=== PATIENT | male | born 1960 | race Caucasian/White ===

== ENCOUNTER 2021-02-24 20:18 | Observation (INO) ==
[2021-02-24] MEDS ORDERED: Naloxone 0.4 MG/ML INJ IVP PRN (23:37)
[2021-02-24] MEDS ORDERED: Ondansetron 4 MG/2 ML VIAL IVP PRN (23:37)
[2021-02-24] MEDS ORDERED: Melatonin 3 MG TABLET PO PRN (23:37)
[2021-02-24] MEDS ORDERED: *HR* LORazepam 2 MG/ML VIAL IVP PRN ×2 (23:46)
[2021-02-25] MEDS: Pantoprazole 40 MG in 0.9 % Sodium Chloride Mini Bag 100 ML IVC SCH ×4 (01:10→16:23)
[2021-02-25] MEDS: *HR* LORazepam 2 MG/ML VIAL IVP PRN ×2 (01:13→13:16)
[2021-02-25 01:17] LABS: Basophils % 0.6 %; Eosinophils # 0.2 K/mcL (0.0-0.6); Hematocrit 25.8 % (37.5-50.1); Hemoglobin 8.3 g/dL (12.9-16.9); Immature Granulocytes % 1.7 % (0-4); Lymphocytes # 1.3 K/mcL (0.6-4.6); Lymphocytes % 19.4 %; Mean Corpuscular HGB Conc 32.2 g/dL (31.6-35.5); Mean Corpuscular Volume 87.2 fL (83.0-100.0); Monocytes # 0.5 K/mcL (0.0-1.3); Monocytes % 6.8 %; Neutrophils # 4.7 K/mcL (1.6-8.9); Platelet Count 319 K/mcL (140-400); Red Blood Count 2.96 M/mcL (4.19-5.50); Red Cell Distribution Width 16.1 % (11.5-14.5); Segmented Neutrophils % 68.5 %; White Blood Count 6.9 K/mcL (4.3-11.1)
[2021-02-25 01:28] LABS: Alanine Aminotransferase 3 Units/L (7-52); Albumin 3.3 g/dL (3.5-5.7); Albumin/Globulin Ratio 1.1 (1.1-2.2); Alkaline Phosphatase 50 Units/L (34-104); Aspartate Amino Transferase 9 Units/L (13-39); BUN/Creatinine Ratio 14 (6-26); Bilirubin,Total 0.5 mg/dL (0.3-1.0); Blood Urea Nitrogen 19 mg/dL (8-23); Calcium 8.7 mg/dL (8.6-10.3); Carbon Dioxide 24 mEq/L (23-29); Chloride 103 mEq/L (98-107); Globulin 2.9 g/dL (2.4-3.5); Glucose 112 mg/dL (70-105); Magnesium 1.9 mg/dL (1.6-2.6); Osmolality,Calculated 281 (280-300); Phosphorous 3.5 mg/dL (2.7-4.5); Potassium 3.8 mEq/L (3.5-5.1); Sodium 134 mEq/L (136-145); Total Protein 6.2 g/dL (6.4-8.9); eGFR For African Americans > 60 (> 60); eGFR For Non-African Americans 53 (> 60)
[2021-02-25] MEDS ORDERED: Potassium Chloride 40 MEQ, Lidocaine 1% 2 ML in 0.9 % Sodium Chloride 500 ML IVPB ONE (01:30)
[2021-02-25] MEDS ORDERED: 0.9 % Sodium Chloride 1,000 ML IVC ONE (01:33)
[2021-02-25] MEDS ORDERED: Thiamine (B-1) 100 MG, Folic Acid 1 MG, MVI, adult with vitamin K 10 ML in 0.9 % Sodi... IVPB SCH (02:00)
[2021-02-25] MEDS: Octreotide 400 MCG in 0.9 % Sodium Chloride 100 ML IVC SCH ×2 (02:29→13:16)
[2021-02-25 09:29] LABS: Hematocrit 25.7 % (37.5-50.1); Hemoglobin 8.3 g/dL (12.9-16.9)
[2021-02-25 09:55] LABS: Acetaminophen < 10 mcg/mL (10-20); Ethanol < 10 mg/dL (Less than 10); Salicylate < 2.5 mg/dL (15.0-30.0)
[2021-02-25 09:56] LABS: Amphetamine Screen,Urine Negative ng/mL (Cutoff=1000); Barbiturate Screen,Urine Negative ng/mL (Cutoff=200); Benzodiazepines Screen,Urine Negative ng/mL (Cutoff=200); Cannabinoid Screen,Urine Negative ng/mL (Cutoff = 50); Cocaine Screen,Urine Negative ng/mL (Cutoff= 300); Opiate Screen,Urine Positive ng/mL (Cutoff=300); Phencyclidine Screen,Urine Negative ng/mL (Cutoff=25)
[2021-02-25] MEDS: cefTRIAXone 1,000 MG in Water for inj. (sterile) 10 ML IVP SCH (10:40)
[2021-02-25] MEDS ORDERED: *HR* Propofol 500 MG/50 ML BOTTLE IVP ONE (13:29)
[2021-02-25] MEDS ORDERED: Lidocaine -MPF 2% 5 ML VIAL SQ ONE (13:29)
[2021-02-26 01:27] LABS: Hematocrit 24.8 % (37.5-50.1); Mean Corpuscular HGB Conc 32.3 g/dL (31.6-35.5); Mean Corpuscular Hemoglobin 28.1 pg (28.0-33.3); Mean Platelet Volume 9.3 fL (9.4-12.4); Platelet Count 356 K/mcL (140-400); Red Blood Count 2.85 M/mcL (4.19-5.50); Red Cell Distribution Width 16.1 % (11.5-14.5); White Blood Count 6.9 K/mcL (4.3-11.1)
[2021-02-26 01:36] LABS: Prothrombin Time 11.3 Seconds (9.4-12.1)
[2021-02-26 01:49] LABS: Alanine Aminotransferase 4 Units/L (7-52); Albumin 2.9 g/dL (3.5-5.7); Albumin/Globulin Ratio 1.1 (1.1-2.2); Alkaline Phosphatase 46 Units/L (34-104); Aspartate Amino Transferase 8 Units/L (13-39); BUN/Creatinine Ratio 12 (6-26); Bilirubin,Total 0.2 mg/dL (0.3-1.0); Blood Urea Nitrogen 14 mg/dL (8-23); Calcium 8.2 mg/dL (8.6-10.3); Carbon Dioxide 23 mEq/L (23-29); Chloride 108 mEq/L (98-107); Globulin 2.7 g/dL (2.4-3.5); Glucose 126 mg/dL (70-105); Iron 15 mcg/dL (65-175); Magnesium 1.7 mg/dL (1.6-2.6); Osmolality,Calculated 288 (280-300); Phosphorous 3.1 mg/dL (2.7-4.5); Potassium 4.1 mEq/L (3.5-5.1); Sodium 138 mEq/L (136-145); Total Protein 5.6 g/dL (6.4-8.9); eGFR For African Americans > 60 (> 60); eGFR For Non-African Americans > 60 (> 60)
[2021-02-26 02:06] LABS: Ferritin 27 ng/mL (20-250)
[2021-02-26 02:12] LABS: Folate 9.2 ng/mL (3.0-16.0)
[2021-02-26 07:21] VITALS: TEMP 98.4
[2021-02-26] MEDS ORDERED: Iron Sucrose Complex 400 MG in 0.9 % Sodium Chloride 250 ML IVPB ONE (07:32)
[2021-02-26] MEDS: cefTRIAXone 1,000 MG in Water for inj. (sterile) 10 ML IVP SCH (08:07)
[2021-02-26] MEDS: Calcium Gluconate 1gm/50mL 1 GM/50 ML BAG IVPB SCH ×2 (08:09→09:17)
[2021-02-26] MEDS ORDERED: Multivit/Ca/Min/Fe/FA 1 TAB TABLET PO SCH (09:00)
[2021-02-26 10:35] VITALS: BP 121/83; PULSE 82; O2SAT 95
[2021-02-26 12:10] LABS: % Iron Saturation 5 % (20-55); Transferrin 233 mg/dL (203-362)
== END 2021-02-26 13:30 | disposition home or self-care (01) ==
LOC: 3ANU → SUATTDRO 23:09
PROVIDERS: ADMIT Internal Medicine; ATTEND Internal Medicine

== ENCOUNTER 2021-03-08 19:42 | Observation (INO) ==
[2021-03-08] MEDS ORDERED: 0.9 % Sodium Chloride 1,000 ML IVC ONE ×2 (20:19→23:07)
[2021-03-08 21:23] LABS: Basophils % 0.6 %; Eosinophils # 0.2 K/mcL (0.0-0.6); Eosinophils % 3.9 %; Hematocrit 28.1 % (37.5-50.1); Hemoglobin 8.7 g/dL (12.9-16.9); Immature Granulocytes % 0.6 % (0-4); Lymphocytes # 1.2 K/mcL (0.6-4.6); Lymphocytes % 22.7 %; Mean Corpuscular Hemoglobin 28.1 pg (28.0-33.3); Mean Corpuscular Volume 90.6 fL (83.0-100.0); Mean Platelet Volume 9.1 fL (9.4-12.4); Monocytes # 0.4 K/mcL (0.0-1.3); Monocytes % 7.1 %; Neutrophils # 3.5 K/mcL (1.6-8.9); Platelet Count 502 K/mcL (140-400); Red Cell Distribution Width 17.4 % (11.5-14.5); Segmented Neutrophils % 65.1 %; White Blood Count 5.4 K/mcL (4.3-11.1)
[2021-03-08 21:33] LABS: Prothrombin Time 11.1 Seconds (9.4-12.1)
[2021-03-08 21:36] LABS: Activated Partial Thrombo Time 28.5 Seconds (26.0-36.0)
[2021-03-08] MEDS ORDERED: Isovue-370 500 ML BOTTLE IVP ONE (21:40)
[2021-03-08 21:46] LABS: Troponin I < 0.03 ng/mL (< 0.04)
[2021-03-08 21:53] LABS: Alanine Aminotransferase 9 Units/L (7-52); Albumin 3.7 g/dL (3.5-5.7); Albumin/Globulin Ratio 1.3 (1.1-2.2); Alkaline Phosphatase 52 Units/L (34-104); Aspartate Amino Transferase 13 Units/L (13-39); BUN/Creatinine Ratio 11 (6-26); Bilirubin,Indirect 0.2 mg/dL (0.0-1.0); Bilirubin,Total 0.2 mg/dL (0.3-1.0); Blood Urea Nitrogen 16 mg/dL (8-23); Calcium 8.9 mg/dL (8.6-10.3); Carbon Dioxide 26 mEq/L (23-29); Chloride 103 mEq/L (98-107); Globulin 2.8 g/dL (2.4-3.5); Glucose 96 mg/dL (70-105); Osmolality,Calculated 283 (280-300); Potassium 4.3 mEq/L (3.5-5.1); Sodium 136 mEq/L (136-145); Total Protein 6.5 g/dL (6.4-8.9); eGFR For African Americans 58 (> 60); eGFR For Non-African Americans 48 (> 60)
[2021-03-08 22:02] LABS: Ethanol < 10 mg/dL (Less than 10)
[2021-03-08 22:26] LABS: Bilirubin,Urine Small (Negative); Blood,Urine Negative (Negative); Clarity,Urine Clear (Clear); Color,Urine Yellow (Yellow); Glucose,Urine (UA) Normal (Normal); Ketones,Urine Trace mg/dL (Negative); Leukocyte Esterase,Urine Negative (Negative); Nitrite,Urine Negative (Negative); PH,Urine 5.5 pH Units (5.0-8.0); Protein,Urine Trace mg/dL (Neg-Trace); Specific Gravity,Urine >= 1.030 (1.010-1.025); Urobilinogen,Urine Normal (Normal)
[2021-03-08] MEDS ORDERED: Doxycycline 100 MG CAPSULE PO ONE (23:23)
[2021-03-08] MEDS ORDERED: Azithromycin 250 MG TABLET PO ONE (23:23)
[2021-03-09] MEDS ORDERED: 0.9 % Sodium Chloride 1,000 ML IVC ONE (01:09)
[2021-03-09 02:09] LABS: Adenovirus Not Detected (Not Detect); Bordetella Pertussis Not Detected (Not Detect); Chlamydophila pneumoniae Not Detected (Not Detect); Coronavirus 229E Not Detected (Not Detect); Coronavirus HKU1 Not Detected (Not Detect); Coronavirus NL63 Not Detected (Not Detect); Coronavirus OC43 Not Detected (Not Detect); Human Metapneumovirus Not Detected (Not Detect); Human Rhinovirus/Enterovirus Not Detected (Not Detect); Influenza A Subtype 2009 H1 Not Detected (Not Detect); Influenza B Not Detected (Not Detect); Mycoplasma pneumoniae Not Detected (Not Detect); Parainfluenza Virus 1 Not Detected (Not Detect); Parainfluenza Virus 2 Not Detected (Not Detect); Parainfluenza Virus 3 Not Detected (Not Detect); Parainfluenza Virus 4 Not Detected (Not Detect); Respiratory Syncytial Virus Not Detected (Not Detect); SARS-CoV-2 Not Detected (Not Detect)
[2021-03-09] MEDS ORDERED: Naloxone 0.4 MG/ML INJ IVP PRN (04:05)
[2021-03-09] MEDS ORDERED: Ondansetron 4 MG/2 ML VIAL IVP PRN (04:10)
[2021-03-09] MEDS ORDERED: Acetaminophen 325 MG TABLET PO PRN (04:10)
[2021-03-09] MEDS ORDERED: traZODone 50 MG TABLET PO PRN (05:42)
[2021-03-09] MEDS ORDERED: 0.9 % Sodium Chloride 1,000 ML IVC SCH (06:30)
[2021-03-09] MEDS ORDERED: Aspirin 325 MG TABLET PO ONE (06:33)
[2021-03-09 06:44] LABS: Basophils % 0.9 %; Eosinophils # 0.2 K/mcL (0.0-0.6); Eosinophils % 4.9 %; Hematocrit 24.3 % (37.5-50.1); Hemoglobin 7.5 g/dL (12.9-16.9); Immature Granulocytes % 0.4 % (0-4); Lymphocytes # 1.3 K/mcL (0.6-4.6); Lymphocytes % 27.2 %; Mean Corpuscular HGB Conc 30.9 g/dL (31.6-35.5); Mean Corpuscular Hemoglobin 27.9 pg (28.0-33.3); Mean Corpuscular Volume 90.3 fL (83.0-100.0); Mean Platelet Volume 9.5 fL (9.4-12.4); Monocytes # 0.3 K/mcL (0.0-1.3); Monocytes % 6.2 %; Neutrophils # 2.8 K/mcL (1.6-8.9); Platelet Count 448 K/mcL (140-400); Red Blood Count 2.69 M/mcL (4.19-5.50); Red Cell Distribution Width 17.4 % (11.5-14.5); Segmented Neutrophils % 60.4 %; White Blood Count 4.7 K/mcL (4.3-11.1)
[2021-03-09] MEDS ORDERED: Doxycycline 100 MG in 0.9 % Sodium Chloride Mini Bag 100 ML IVPB ONE ×2 (06:53→12:00)
[2021-03-09 07:00] LABS: Phosphorous 3.8 mg/dL (2.7-4.5)
[2021-03-09 07:01] LABS: BUN/Creatinine Ratio 11 (6-26); Blood Urea Nitrogen 13 mg/dL (8-23); Calcium 8.1 mg/dL (8.6-10.3); Carbon Dioxide 24 mEq/L (23-29); Chloride 107 mEq/L (98-107); Chol/HDL Ratio 3.8 (0-4.9); Cholesterol 164 mg/dL (< 200); Glucose 101 mg/dL (70-105); HDL Cholesterol 43 mg/dL (40-59); LDL Cholesterol,Calculated 97 mg/dL (< 100); Osmolality,Calculated 284 (280-300); Potassium 3.8 mEq/L (3.5-5.1); Sodium 137 mEq/L (136-145); Triglycerides 121 mg/dL (< 150); eGFR For African Americans > 60 (> 60); eGFR For Non-African Americans > 60 (> 60)
[2021-03-09] MEDS ORDERED: Perflutren Lipid Microsphere 1.3 ML in 0.9 % Sodium Chloride 8.7 ML IVP PRN (07:25)
[2021-03-09] MEDS: Cyanocobalamin (B-12) 1,000 MCG TABLET PO SCH (08:24)
[2021-03-09] MEDS: Aspirin 81 MG TAB.CHEW PO SCH (08:24)
[2021-03-09 08:30] LABS: Thyroid Stimulating Hormone 4.325 mcIU/mL (0.340-5.600)
[2021-03-09 10:01] LABS: Estimated Average Glucose 105 mg/dl; Hemoglobin A1C 5.3 %
[2021-03-09] MEDS: cefTRIAXone 1,000 MG in Water for inj. (sterile) 10 ML IVP SCH (13:16)
[2021-03-09] MEDS ORDERED: Azithromycin 500 MG in 0.9 % Sodium Chloride 250 ML IVPB SCH (23:00)
[2021-03-10 02:30] LABS: Basophils % 0.4 %; Eosinophils # 0.3 K/mcL (0.0-0.6); Eosinophils % 5.1 %; Hematocrit 24.1 % (37.5-50.1); Hemoglobin 7.4 g/dL (12.9-16.9); Immature Granulocytes % 0.4 % (0-4); Lymphocytes # 1.4 K/mcL (0.6-4.6); Lymphocytes % 26.9 %; Mean Corpuscular HGB Conc 30.7 g/dL (31.6-35.5); Mean Corpuscular Volume 91.3 fL (83.0-100.0); Mean Platelet Volume 9.6 fL (9.4-12.4); Monocytes # 0.4 K/mcL (0.0-1.3); Monocytes % 8.2 %; Platelet Count 429 K/mcL (140-400); Red Blood Count 2.64 M/mcL (4.19-5.50); White Blood Count 5.1 K/mcL (4.3-11.1)
[2021-03-10 02:50] LABS: BUN/Creatinine Ratio 13 (6-26); Blood Urea Nitrogen 14 mg/dL (8-23); Carbon Dioxide 25 mEq/L (23-29); Chloride 110 mEq/L (98-107); Glucose 80 mg/dL (70-105); Osmolality,Calculated 287 (280-300); Potassium 4.1 mEq/L (3.5-5.1); Sodium 139 mEq/L (136-145); eGFR For African Americans > 60 (> 60); eGFR For Non-African Americans > 60 (> 60)
[2021-03-10 03:05] LABS: Calcium 8.3 mg/dL (8.6-10.3)
[2021-03-10 07:19] VITALS: O2SAT 97
[2021-03-10] MEDS ORDERED: Multivit/Ca/Min/Fe/FA 1 TAB TABLET PO SCH (09:00)
[2021-03-10] MEDS: Cyanocobalamin (B-12) 1,000 MCG TABLET PO SCH (09:04)
[2021-03-10] MEDS: cefTRIAXone 1,000 MG in Water for inj. (sterile) 10 ML IVP SCH (09:04)
[2021-03-10] MEDS: Aspirin 81 MG TAB.CHEW PO SCH (09:04)
[2021-03-10 11:18] VITALS: TEMP 98.6
[2021-03-10 11:23] VITALS: BP 128/74; PULSE 90
== END 2021-03-10 12:36 | disposition home or self-care (01) ==
LOC: EMEROOARM 19:42 → 3ANU 19:42 → SUATTDRO 03-09 03:41 → 3ANU 03-09 04:35
PROVIDERS: ADMIT Student in an Organized Health Care Education/Training Program; ATTEND Internal Medicine

== ENCOUNTER 2021-11-30 00:25 | Inpatient (IN) ==
[2021-11-30] MEDS ORDERED: Acetaminophen 325 MG TABLET PO PRN (04:54)
[2021-11-30] MEDS ORDERED: Naloxone 0.4 MG/ML INJ IVP PRN (04:54)
[2021-11-30] MEDS ORDERED: *HR* LORazepam 2 MG/ML VIAL IVP PRN ×2 (04:54)
[2021-11-30] MEDS ORDERED: Melatonin 3 MG TABLET PO PRN (04:54)
[2021-11-30] MEDS ORDERED: Ondansetron ODT 4 MG TAB.RAPDIS SL PRN (04:54)
[2021-11-30] MEDS: 0.9 % Sodium Chloride 1,000 ML IVC SCH ×2 (05:37→21:00)
[2021-11-30 06:01] LABS: Hematocrit 29.5 % (37.5-50.1); Hemoglobin 10.1 g/dL (12.9-16.9); Mean Corpuscular HGB Conc 34.2 g/dL (31.6-35.5); Mean Corpuscular Hemoglobin 32.6 pg (28.0-33.3); Mean Corpuscular Volume 95.2 fL (83.0-100.0); Mean Platelet Volume 10.7 fL (9.4-12.4); Platelet Count 257 K/mcL (140-400); Red Cell Distribution Width 13.6 % (11.5-14.5); White Blood Count 9.3 K/mcL (4.3-11.1)
[2021-11-30 06:13] LABS: Prothrombin Time 11.2 Seconds (9.4-12.1)
[2021-11-30] MEDS: Ipratropium/Albuterol Neb 3 ML IH SCH ×4 (06:14→21:18)
[2021-11-30] MEDS ORDERED: Nicotine 21 MG PATCH.TD24 TD PRN (06:14)
[2021-11-30 06:16] LABS: Activated Partial Thrombo Time 32.1 Seconds (26.0-36.0)
[2021-11-30 06:23] LABS: Acetaminophen < 10 mcg/mL (10-20); Alanine Aminotransferase 18 Units/L (7-52); Albumin/Globulin Ratio 0.9 (1.1-2.2); Alkaline Phosphatase 71 Units/L (34-104); Aspartate Amino Transferase 21 Units/L (13-39); BUN/Creatinine Ratio 11 (6-26); Bilirubin,Indirect 0.3 mg/dL (0.0-1.0); Bilirubin,Total 0.3 mg/dL (0.3-1.0); Blood Urea Nitrogen 58 mg/dL (8-23); Calcium 8.4 mg/dL (8.6-10.3); Carbon Dioxide 18 mEq/L (23-29); Chloride 95 mEq/L (98-107); Chol/HDL Ratio 11.6 (0-4.9); Cholesterol 139 mg/dL (< 200); Ethanol < 10 mg/dL (Less than 10); Globulin 3.3 g/dL (2.4-3.5); Glucose 110 mg/dL (70-105); HDL Cholesterol 12 mg/dL (40-59); LDL Cholesterol,Calculated 57 mg/dL (< 100); Magnesium 2.6 mg/dL (1.6-2.6); Osmolality,Calculated 285 (280-300); Phosphorous 4.2 mg/dL (2.7-4.5); Potassium 3.3 mEq/L (3.5-5.1); Sodium 129 mEq/L (136-145); Thyroid Stimulating Hormone 1.422 mcIU/mL (0.340-5.600); Total Protein 6.3 g/dL (6.4-8.9); Triglycerides 348 mg/dL (< 150); Uric Acid 10.8 mg/dL (2.3-7.6); eGFR For African Americans 14 (> 60); eGFR For Non-African Americans 12 (> 60)
[2021-11-30 07:14] LABS: Iron < 10 mcg/dL (65-175); Transferrin 172 mg/dL (203-362)
[2021-11-30] MEDS: Thiamine (B-1) 100 MG TABLET PO SCH (07:39)
[2021-11-30] MEDS: Folic Acid 1 MG TABLET PO SCH (07:39)
[2021-11-30] MEDS: Vitamin B Complex/Vit C/Vit E 1 EACH TABLET PO SCH (07:39)
[2021-11-30 07:48] LABS: Hepatitis B Surface Antigen Nonreactive (Nonreactive)
[2021-11-30] MEDS: Budesonide/Formoterol 160/4.5 1 PUFF INH IH SCH ×2 (07:48→21:18)
[2021-11-30 08:09] LABS: Folate 18.9 ng/mL (3.0-16.0)
[2021-11-30 08:17] LABS: Hepatitis B Core IgM Nonreactive (Nonreactive); Hepatitis C Virus Antibody Nonreactive (Nonreactive)
[2021-11-30 08:19] LABS: Hepatitis A Antibody IgM Nonreactive (Nonreactive)
[2021-11-30 08:20] LABS: Amorphous Sediment,Urine Few per hpf (None-Few); Bacteria,Urine Few per hpf (None-Few); Bilirubin,Urine Negative (Negative); Blood,Urine Moderate (Negative); Clarity,Urine Turbid (Clear); Color,Urine Yellow (Yellow); Glucose,Urine (UA) Normal (Normal); Granular Casts,Urine Few per lpf (None Seen); Hyaline Casts,Urine Many per lpf (None Seen); Ketones,Urine Negative (Negative); Leukocyte Esterase,Urine Trace (Negative); Mucus,Urine Few per lpf (None-Few); Nitrite,Urine Negative (Negative); Protein,Urine 100 mg/dL (Neg-Trace); Specific Gravity,Urine 1.012 (1.010-1.025); Urobilinogen,Urine Normal (Normal); WBC,Urine 15-30 per hpf (0-3)
[2021-11-30 08:23] LABS: Creatine Kinase 101 Units/L (30-223)
[2021-11-30 12:32] LABS: Creatinine,Urine 51 mg/dL; Protein/Creatinine Ratio,Urine 2.26 mg/mg (0.00-0.20); Sodium, Urine 24.4 mEq/L
[2021-11-30 13:25] LABS: Amphetamine Screen,Urine Negative ng/mL (Cutoff=1000); Barbiturate Screen,Urine Negative ng/mL (Cutoff=200); Benzodiazepines Screen,Urine Negative ng/mL (Cutoff=200); Cannabinoid Screen,Urine Negative ng/mL (Cutoff = 50); Cocaine Screen,Urine Positive ng/mL (Cutoff= 300); Opiate Screen,Urine Negative ng/mL (Cutoff=300); Phencyclidine Screen,Urine Negative ng/mL (Cutoff=25)
[2021-11-30] MEDS: *HR* LORazepam 2 MG/ML VIAL IVP PRN ×2 (15:44→20:16)
[2021-11-30] MEDS ORDERED: *HR* Metoprolol 5 MG/5 ML VIAL IVP ONE (17:00)
[2021-12-01] MEDS ORDERED: Acetaminophen IV 1,000 MG/100 ML BAG IVPB ONE (00:11)
[2021-12-01] MEDS: *HR* LORazepam 2 MG/ML VIAL IVP PRN ×2 (00:50→05:09)
[2021-12-01] MEDS: Ipratropium/Albuterol Neb 3 ML IH SCH ×4 (03:53→21:30)
[2021-12-01 04:07] LABS: Basophils % 0.2 %; Hematocrit 30.8 % (37.5-50.1); Hemoglobin 10.2 g/dL (12.9-16.9); Immature Granulocytes % 5.2 % (0-4); Lymphocytes # 0.4 K/mcL (0.6-4.6); Lymphocytes % 3.5 %; Mean Corpuscular HGB Conc 33.1 g/dL (31.6-35.5); Mean Corpuscular Hemoglobin 32.3 pg (28.0-33.3); Mean Corpuscular Volume 97.5 fL (83.0-100.0); Mean Platelet Volume 10.5 fL (9.4-12.4); Monocytes # 0.8 K/mcL (0.0-1.3); Monocytes % 6.3 %; Neutrophils # 10.2 K/mcL (1.6-8.9); Platelet Count 297 K/mcL (140-400); Red Blood Count 3.16 M/mcL (4.19-5.50); Red Cell Distribution Width 14.6 % (11.5-14.5); Segmented Neutrophils % 84.8 %
[2021-12-01 04:17] LABS: Magnesium 2.6 mg/dL (1.6-2.6)
[2021-12-01 04:33] LABS: VBG Ionized Calcium 1.08 mmol/L (1.15-1.35)
[2021-12-01 04:33] LABS: Complement C3 139 mg/dL (87-200)
[2021-12-01 05:06] LABS: Platelet Estimate Normal (Normal)
[2021-12-01 05:55] LABS: ABG Base Excess -15 mEq/L (-2 to 3); ABG HCO3 19 mEq/L (21-27); ABG Oxygen Saturation 80 % (95-98); ABG PCO2 94 mmHg (35-45); ABG PO2 75 mmHg (85-104); ABG TCO2 22 mEq/L (20-26)
[2021-12-01] MEDS ORDERED: *HR* FentaNYL (PF) 100 MCG/2 ML VIAL ONE (05:57)
[2021-12-01] MEDS ORDERED: Artificial Tears SOLN 15 ML BOTTLE BOTH EYES PRN (05:57)
[2021-12-01 06:19] LABS: INR 1.1; Prothrombin Time 12.2 Seconds (9.4-12.1)
[2021-12-01] MEDS ORDERED: *HR* Etomidate 20 MG/10 ML AMPUL IVP ONE (06:19)
[2021-12-01] MEDS ORDERED: *HR* Midazolam HCl 5 MG/5 ML VIAL IVP ONE (06:19)
[2021-12-01] MEDS ORDERED: *HR* Midazolam HCl 2 MG/2 ML VIAL IVP ONE (06:19)
[2021-12-01 06:22] LABS: Activated Partial Thrombo Time 42.3 Seconds (26.0-36.0)
[2021-12-01 06:28] LABS: Albumin 3.1 g/dL (3.5-5.7); Albumin/Globulin Ratio 0.9 (1.1-2.2); Bilirubin,Total 0.6 mg/dL (0.3-1.0); Calcium 8.7 mg/dL (8.6-10.3); Globulin 3.5 g/dL (2.4-3.5); Magnesium 3.1 mg/dL (1.6-2.6); Phosphorous 8.2 mg/dL (2.7-4.5); Potassium 4.7 mEq/L (3.5-5.1); Total Protein 6.6 g/dL (6.4-8.9)
[2021-12-01 06:40] LABS: Hematocrit 35.2 % (37.5-50.1); Hemoglobin 11.3 g/dL (12.9-16.9); Mean Corpuscular HGB Conc 32.1 g/dL (31.6-35.5); Mean Corpuscular Hemoglobin 32.3 pg (28.0-33.3); Mean Corpuscular Volume 100.6 fL (83.0-100.0); Mean Platelet Volume 10.6 fL (9.4-12.4); Platelet Count 387 K/mcL (140-400); Red Cell Distribution Width 14.9 % (11.5-14.5)
[2021-12-01] MEDS: FentaNYL (PF) 1,000 MCG/100 ML IV.SOLN IVC SCH ×2 (06:40→21:22)
[2021-12-01] MEDS: Midazolam HCl 50 MG/50 ML IV.SOLN IVC SCH (06:40)
[2021-12-01 06:49] LABS: White Blood Count 20.9 K/mcL (4.3-11.1)
[2021-12-01] MEDS: Budesonide/Formoterol 160/4.5 1 PUFF INH IH SCH ×2 (07:44→21:30)
[2021-12-01] MEDS: Pantoprazole 40 MG VIAL IVP SCH (07:47)
[2021-12-01] MEDS: Vitamin B Complex/Vit C/Vit E 1 EACH TABLET PO SCH (07:47)
[2021-12-01] MEDS: Artificial Tears SOLN 15 ML BOTTLE BOTH EYES SCH ×4 (07:47→21:24)
[2021-12-01] MEDS: Folic Acid 1 MG TABLET PO SCH (07:48)
[2021-12-01] MEDS: Thiamine (B-1) 100 MG TABLET PO SCH (07:48)
[2021-12-01] MEDS: Chlorhexidine Rinse 15 ML MOUTHWASH MM SCH ×2 (07:48→21:23)
[2021-12-01] MEDS ORDERED: Dextrose 4 GM Chewable Tablets PO PRN ×2 (07:52)
[2021-12-01] MEDS ORDERED: D5% in Water 1,000 ML IVC PRN (07:52)
[2021-12-01] MEDS ORDERED: *HR* Dextrose 50 % in Water (Syg) 50 ML SYRINGE IVP PRN (07:52)
[2021-12-01 07:58] LABS: Lymphocytes # 0.8 K/mcL (0.6-4.6); Monocytes # 2.9 K/mcL (0.0-1.3); Neutrophils # 16.7 K/mcL (1.6-8.9); Platelet Estimate Normal (Normal)
[2021-12-01] MEDS ORDERED: Perflutren Lipid Microsphere 1.3 ML in 0.9 % Sodium Chloride 8.7 ML IVP PRN (08:49)
[2021-12-01 09:36] LABS: Chol/HDL Ratio 17.5 (0-4.9)
[2021-12-01 09:49] LABS: Thyroid Stimulating Hormone 0.579 mcIU/mL (0.340-5.600)
[2021-12-01 09:58] LABS: ABG Base Excess -10 mEq/L (-2 to 3); ABG HCO3 15 mEq/L (21-27); ABG Oxygen Saturation 97 % (95-98); ABG PCO2 29 mmHg (35-45); ABG PH 7.31 pH Units (7.32-7.45); ABG PO2 93 mmHg (85-104); ABG TCO2 16 mEq/L (20-26); Blood Gas Modality ASSIST CONTROL; Blood Gas VT 500 cc
[2021-12-01] MEDS: Dexmedetomidine HCl 400 MCG/100 ML MLS IVC SCH ×3 (11:45→20:58)
[2021-12-01] MEDS: Aspirin 325 MG TABLET PO SCH (13:44)
[2021-12-01] MEDS: *HR* Heparin 5,000 UNIT/ML VIAL SQ SCH ×3 (13:45→21:24)
[2021-12-01] MEDS: Insulin LISPRO 300 UNITS/3 ML VIAL SUBQ SCH ×2 (15:26→19:49)
[2021-12-01] MEDS ORDERED: Piperacillin/Tazobactam 3.375 GM VIAL ONE ×2 (15:28→15:37)
[2021-12-01] MEDS: 0.9 % Sodium Chloride 1,000 ML IVC SCH (16:00)
[2021-12-01] MEDS ORDERED: Vancomycin 1 EACH in 0.9 % Sodium Chloride 250 ML IVPB PRN (16:00)
[2021-12-01] MEDS ORDERED: Piperacillin/Tazobactam 3.375 GM in 0.9 % Sodium Chloride Mini Bag 100 ML IVPB SCH (16:00)
[2021-12-01] MEDS ORDERED: Vancomycin 1,250 MG/262.5 ML IV.SOLN IVPB ONE (18:00)
[2021-12-01] MEDS ORDERED: *HR* LORazepam 2 MG/ML VIAL IVP ONE (20:44)
[2021-12-02 00:51] LABS: Enterococcus faecalis by PCR Not Detected (Not Detect); Enterococcus faecium by PCR Not Detected (Not Detect); Staph epidermidis by PCR Not Detected (Not Detect); Staph lugdunensis by PCR Not Detected (Not Detect); Staphylococcus aureus by PCR DETECTED (Not Detect); Streptococcus by PCR Not Detected (Not Detect); mecA/C & MREJ (MRSA) Gene DETECTED (Not Detect)
[2021-12-02 00:52] LABS: A.calcoaceticus-baumannii cplx Not Detected (Not Detect); Bacteroides fragilis by PCR Not Detected (Not Detect); Candida albicans by PCR Not Detected (Not Detect); Candida auris by PCR Not Detected (Not Detect); Candida glabrata by PCR Not Detected (Not Detect); Candida krusei by PCR Not Detected (Not Detect); Candida parapsilosis by PCR Not Detected (Not Detect); Candida tropicalis by PCR Not Detected (Not Detect); Crypto. neoformans/gattii PCR Not Detected (Not Detect); Enterobacter cloacae Cmplx PCR Not Detected (Not Detect); Enterobacterales by PCR Not Detected (Not Detect); Escherichia coli by PCR Not Detected (Not Detect); Klebs. pneumoniae group by PCR Not Detected (Not Detect); Klebsiella aerogenes by PCR Not Detected (Not Detect); Klebsiella oxytoca by PCR Not Detected (Not Detect); Proteus by PCR Not Detected (Not Detect); Pseudomonas aeruginosa by PCR Not Detected (Not Detect); Salmonella species by PCR Not Detected (Not Detect); Serratia marcescens by PCR Not Detected (Not Detect); Stenotrophomonas maltophilia Not Detected (Not Detect); Streptococcus agalactiae(B)PCR Not Detected (Not Detect); Streptococcus pneumoniae PCR Not Detected (Not Detect); Streptococcus pyogenes (A) PCR Not Detected (Not Detect)
[2021-12-02] MEDS: Artificial Tears SOLN 15 ML BOTTLE BOTH EYES SCH ×3 (01:11→08:18)
[2021-12-02] MEDS: Insulin LISPRO 300 UNITS/3 ML VIAL SUBQ SCH ×2 (01:11→06:13)
[2021-12-02 01:38] LABS: Calcium 8.1 mg/dL (8.6-10.3); Potassium 5.3 mEq/L (3.5-5.1)
[2021-12-02] MEDS: Ipratropium/Albuterol Neb 3 ML IH SCH ×2 (03:20→07:40)
[2021-12-02] MEDS ORDERED: Piperacillin/Tazobactam 3.375 GM in 0.9 % Sodium Chloride Mini Bag 100 ML IVPB SCH (04:00)
[2021-12-02 05:12] LABS: ABG Base Excess -12 mEq/L (-2 to 3); ABG HCO3 16 mEq/L (21-27); ABG Oxygen Saturation 88 % (95-98); ABG PCO2 48 mmHg (35-45); ABG PH 7.14 pH Units (7.32-7.45); ABG PO2 72 mmHg (85-104); ABG TCO2 18 mEq/L (20-26); Blood Gas Modality AF; Blood Gas VT 500 cc
[2021-12-02] MEDS: 0.9 % Sodium Chloride 1,000 ML IVC SCH (05:47)
[2021-12-02] MEDS: *HR* Heparin 5,000 UNIT/ML VIAL SQ SCH (06:09)
[2021-12-02] MEDS: Midazolam HCl 50 MG/50 ML IV.SOLN IVC SCH (06:14)
[2021-12-02] MEDS ORDERED: Sodium Bicarbonate 75 MEQ in 0.45 % Sodium Chloride 1,000 ML IVC SCH (06:45)
[2021-12-02 06:59] LABS: Kappa Qnt Free Light Chains 68.68 mg/L (3.30-19.40); Lambda Qnt Free Light Chains 51.74 mg/L (5.71-26.30)
[2021-12-02 06:59] LABS: VBG Ionized Calcium 1.08 mmol/L (1.15-1.35)
[2021-12-02 07:27] LABS: Albumin 2.7 g/dL (3.5-5.7); Albumin/Globulin Ratio 0.8 (1.1-2.2); Bilirubin,Total 0.3 mg/dL (0.3-1.0); Globulin 3.2 g/dL (2.4-3.5); Phosphorous 8.3 mg/dL (2.7-4.5); Potassium 5.7 mEq/L (3.5-5.1); Total Protein 5.9 g/dL (6.4-8.9)
[2021-12-02] MEDS: Budesonide/Formoterol 160/4.5 1 PUFF INH IH SCH (07:40)
[2021-12-02] MEDS: Aspirin 325 MG TABLET PO SCH (07:44)
[2021-12-02] MEDS ORDERED: Norepinephrine 4 MG/254 ML IV.SOLN IVC SCH (07:45)
[2021-12-02 07:49] VITALS: TEMP 100.3
[2021-12-02] MEDS ORDERED: 0.9 % Sodium Chloride 500 ML ONE (07:50)
[2021-12-02] MEDS: Chlorhexidine Rinse 15 ML MOUTHWASH MM SCH (08:18)
[2021-12-02] MEDS: Vitamin B Complex/Vit C/Vit E 1 EACH TABLET PO SCH (08:23)
[2021-12-02] MEDS: Thiamine (B-1) 100 MG TABLET PO SCH (08:23)
[2021-12-02] MEDS: Pantoprazole 40 MG VIAL IVP SCH (08:24)
[2021-12-02] MEDS: Folic Acid 1 MG TABLET PO SCH (08:24)
[2021-12-02] MEDS: Dexmedetomidine HCl 400 MCG/100 ML MLS IVC SCH (09:11)
[2021-12-02] MEDS: SODIUM ZIRCONIUM CYCLOSILICATE 5 GM POWD.PACK PO SCH ×2 (09:32→10:07)
[2021-12-02] MEDS ORDERED: Calcium Gluconate 2,000 MG in D5% in Water 100 ML IVPB ONE (10:00)
[2021-12-02 10:15] LABS: ABG Base Excess -10 mEq/L (-2 to 3); ABG HCO3 16 mEq/L (21-27); ABG Oxygen Saturation 94 % (95-98); ABG PCO2 33 mmHg (35-45); ABG PH 7.28 pH Units (7.32-7.45); ABG PO2 81 mmHg (85-104); ABG TCO2 17 mEq/L (20-26); Blood Gas Modality ASSIST CONTROL; Blood Gas VT 500 cc
[2021-12-02 10:25] LABS: Amylase,Pleural Fluid 22 Units/L (No Ref Range); Glucose,Pleural Fluid 93 mg/dL (No Ref Range); LDH,Pleural Fluid > 1200 Units/L (No Ref Range); Total Protein,Pleural Fluid 3.8 g/dL
[2021-12-02] MEDS ORDERED: Insulin Human Regular 10 UNIT in 0.9 % Sodium Chloride 10 ML IV ONE (10:28)
[2021-12-02] MEDS ORDERED: *HR* Dextrose 50 % in Water (Syg) 50 ML SYRINGE IVP ONE (10:29)
[2021-12-02] MEDS ORDERED: Sodium Bicarbonate 50 MEQ/50 ML VIAL IVP ONE (10:29)
[2021-12-02] MEDS ORDERED: Amiodarone Premix 150 MG/100 ML BAG IVPB ONE ×2 (11:08→11:11)
[2021-12-02] MEDS ORDERED: Amiodarone Premix 360 MG/200 ML BAG IVC ONE (11:10)
[2021-12-02] MEDS ORDERED: Phenylephrine 20 MG in 0.9 % Sodium Chloride 250 ML IVC SCH (11:15)
[2021-12-02 11:34] VITALS: BP 95/48; PULSE 163; O2SAT 95
[2021-12-02 11:49] LABS: Adenovirus Not Detected (Not Detect); Bordetella Pertussis Not Detected (Not Detect); Chlamydophila pneumoniae Not Detected (Not Detect); Coronavirus 229E Not Detected (Not Detect); Coronavirus HKU1 Not Detected (Not Detect); Coronavirus NL63 Not Detected (Not Detect); Coronavirus OC43 Not Detected (Not Detect); Human Metapneumovirus Not Detected (Not Detect); Human Rhinovirus/Enterovirus Not Detected (Not Detect); Influenza A Subtype 2009 H1 Not Detected (Not Detect); Influenza B Not Detected (Not Detect); Mycoplasma pneumoniae Not Detected (Not Detect); Parainfluenza Virus 1 Not Detected (Not Detect); Parainfluenza Virus 2 Not Detected (Not Detect); Parainfluenza Virus 3 Not Detected (Not Detect); Parainfluenza Virus 4 Not Detected (Not Detect); Respiratory Syncytial Virus Not Detected (Not Detect); SARS-CoV-2 Not Detected (Not Detect)
[2021-12-02 13:00] LABS: RBC,Pleural Fluid 13000 RBC/mcL
[2021-12-02 15:45] LABS: Basophils,Pleural Fluid 0 %; Eosinophils,Pleural Fluid 0 %; Lymphocytes,Pleural Fluid 0 %
[2021-12-02 15:46] LABS: Appearance of Pleural Fl Hazy (Clear)
[2021-12-02] MEDS ORDERED: Vancomycin 1,250 MG/262.5 ML IV.SOLN IVPB ONE (16:00)
[2021-12-03 15:20] LABS: ANA IgG by ELISA DETECTED (None Detected)
[2021-12-03 23:54] LABS: Beta Globulin (PEP) 0.79 g/dL (0.48-1.10)
[2021-12-04 12:01] LABS: IFE Reflexed IFE Done; Immunoglobulin A 169 mg/dL (68-408); Immunoglobulin G 655 mg/dL (768-1632); Immunoglobulin M 142 mg/dL (35-263)
== END 2021-12-02 11:36 | disposition short-term general hospital (02) | DRG 775 ==
LOC: 2ANU → 2NNU 06:34 → ICNU 12-01 06:22
PROVIDERS: ADMIT Internal Medicine; ATTEND Internal Medicine